=== PATIENT | male | born 1995 | race Caucasian/White ===

== ENCOUNTER 2016-08-03 16:06 | Emergency (ER) | payer OTHER ==
[2016-08-03 16:18] VITALS: BP 124/74; PULSE 88; RESP 20; TEMP 99.8
[2016-08-03] MEDS ORDERED: cefTRIAXone 250 MG VIAL IM STA (16:30)
[2016-08-03] MEDS ORDERED: AZITHROMYCIN 500 MG TAB PO STA (16:30)
--- NOTE | 2016-08-03 16:33 | ED ---
General Adult HPI - General Chief complaint: Urogenital Stated complaint: STD Screening Time Seen by Provider: 08/03/16 16:24 Source: patient, RN notes reviewed Mode of arrival: ambulatory Limitations: no limitations - History of Present Illness Initial comments: 21-year-old male presents emergency Department chief complaint of burning stinging with urination as well as urethral discharge. Patient states his girlfriend was diagnosed with chlamydia. Patient states that he is also having similar like symptoms. Patient states he is concerned about STD. Patient states is not currently having any other symptoms. Patient denies any history of STD in the past. Patient denies any recent fever, chills, shortness of breath , chest pain, back pain, abdominal pain, nausea vomiting, numbness or tingling, constipation or diarrhea, headaches or visual changes, or any other current symptoms. - Related Data Home Medications Medication Instructions Recorded Confirmed Ibuprofen [Motrin] 200 - 400 mg PO Q6HR PRN 08/03/16 08/03/16 Previous Rx's Medication Instructions Recorded Doxycycline [Vibramycin] 100 mg PO Q12HR #56 capsule 08/03/16 Allergies Allergy/AdvReac Type Severity Reaction Status Date / Time No Known Allergies Allergy Verified 08/03/16 16:39 Review of Systems ROS Statement: Those systems with pertinent positive or pertinent negative responses have been documented in the HPI. ROS Other: All systems not noted in ROS Statement are negative. Past Medical History Past Medical History: No Reported History History of Any Multi-Drug Resistant Organisms: None Reported Past Surgical History: No Surgical Hx Reported Past Psychological History: No Psychological Hx Reported Smoking Status: Current some day smoker Past Alcohol Use History: None Reported Past Drug Use History: None Reported General Exam - General Exam Comments Initial Comments: General: The patient is awake and alert, in no distress, and does not appear acutely ill. Eye: Pupils are equal, round and reactive to light. Ears, nose, mouth and throat: There are moist mucous membranes. Neck: The neck is supple, there is no tenderness. Cardiovascular: There is a regular rate and rhythm. No murmur, rub or gallop is appreciated. Respiratory: Lungs are clear to auscultation, respirations are non-labored, breath sounds are equal. No wheezes, stridor, rales, or rhonchi. Gastrointestinal: Soft, non-distended, non-tender abdomen without masses or organomegaly noted. There is no rebound or guarding present. No CVA tenderness. Bowel sounds are unremarkable. Musculoskeletal: Normal ROM, no tenderness, There is no pedal edema. There is no calf tenderness or swelling. Sensation intact. Pulses equal bilaterally 2+. Neurological: CN II-XII intact, There are no obvious motor or sensory deficits. Coordination appears grossly intact. Speech is normal. Skin: Skin is warm and dry and no rashes or lesions are noted. Psychiatric: Cooperative, appropriate mood & affect, normal judgment. Limitations: no limitations Course Vital Signs 08/03/16 16:16 Temperature 99.8 F H Pulse Rate 88 Respiratory 20 Rate Blood Pressure 124/74 O2 Sat by Pulse 99 Oximetry Medical Decision Making - Medical Decision Making 21-year-old male presents with chief complaint of dysuria. This time there is suspicion for chlamydia due to the fact that the girlfriend had been diagnosed. At this time we will start the patient on medication for this. We discussed follow-up on results we did discuss her temporalis all patient's questions very state Herb is significant plan. He will be discharged. - Lab Data Lab Results 08/03/16 Range/Units 16:22 Urine Color Yellow Urine Appearance Clear (Clear) Urine pH 5.5 (5.0-8.0) Ur Specific [place] 1.025 (1.001-1.035) Urine Protein Negative (Negative) Urine Glucose (UA) Negative (Negative) Urine Ketones Negative (Negative) Urine Blood Negative (Negative) Urine Nitrite Negative (Negative) Urine Bilirubin Negative (Negative) Urine Urobilinogen <2.0 (<2.0) mg/dL Ur Leukocyte Esterase Trace H (Negative) Urine RBC 1 (0-5) /hpf Urine WBC 9 H (0-5) /hpf Amorphous Sediment Rare H (None) /hpf Urine Mucus Rare H (None) /hpf Disposition Clinical Impression: Concern about STD in male without diagnosis Disposition: HOME SELF-CARE Condition: Stable Instructions: Sexually Transmitted Diseases (ED) Additional Instructions: Please use medication as discussed. Please follow up with family doctor if symptoms have not improved over the next two days. Please return to the emergency room if your symptoms increase or worsen or for any other concerns. Prescriptions: Doxycycline [Vibramycin] 100 mg PO Q12HR #56 capsule Referrals: Manuel Grimes MD [Primary Care Provider] - 1-2 days Time of Disposition: 16:47
[2016-08-03 16:43] LABS: Amorphous Sediment,Urine Rare /hpf; Appearance,Urine Clear (Clear); Bilirubin,Urine Negative (Negative); Glucose,Urine (UA) Negative (Negative); Ketones,Urine Negative (Negative); Leukocyte Esterase,Urine Trace (Negative); Mucus,Urine Rare /hpf; Nitrite,Urine Negative (Negative); PH, Urine 5.5 (5.0-8.0); Particle Count 1212; Protein,Urine Negative (Negative); RBC,Urine 1 /hpf (0-5); Specific Gravity,Urine 1.025 (1.001-1.035); UA Billing (MACRO vs. MICRO) MICRO; Urobilinogen,Urine <2.0 mg/dL (<2.0); WBC,Urine 9 /hpf (0-5)
== END 2016-08-03 17:09 | disposition home or self-care (01) ==
LOC: EC 16:06
DX: Z20.2 Contact with and (suspected) exposure to infections with a predominantly sexual mode of transmission (principal); R39.198 Other difficulties with micturition; F17.200 Nicotine dependence, unspecified, uncomplicated
CPT/HCPCS: 99283; 96372; 81001; 87491; 87591; 87086; J0696

== ENCOUNTER 2017-09-12 11:56 | Emergency (ER) | payer OTHER ==
[2017-09-12 12:03] VITALS: BP 144/75; PULSE 107; RESP 18; TEMP 98.7
--- NOTE | 2017-09-12 12:16 | ED ---
Skin/Abscess/FB HPI - General Chief complaint: Skin/Abscess/Foreign Body Stated complaint: Rash on hand/arm Time Seen by Provider: 09/12/17 12:06 Source: patient, RN notes reviewed Mode of arrival: ambulatory - History of Present Illness Initial comments: 22-year-old male presents emergency Department with chief complaint of a rash. Patient states that he got into poison mary and states that his been using done to soaps and alcohol this is not clearing up. Patient denies difficulty breathing or swallowing. He states his skin is dried out and very irritated this point. - Related Data Previous Rx's Medication Instructions Recorded predniSONE 10 mg PO DIRECTED #30 tab 09/12/17 Allergies Allergy/AdvReac Type Severity Reaction Status Date / Time No Known Allergies Allergy Verified 09/12/17 12:03 Review of Systems ROS Statement: Those systems with pertinent positive or pertinent negative responses have been documented in the HPI. ROS Other: All systems not noted in ROS Statement are negative. Past Medical History Past Medical History: No Reported History History of Any Multi-Drug Resistant Organisms: None Reported Past Surgical History: No Surgical Hx Reported Past Psychological History: No Psychological Hx Reported Smoking Status: Current some day smoker Past Alcohol Use History: Occasional Past Drug Use History: None Reported General Exam General appearance: alert, in no apparent distress Head exam: Present: atraumatic, normocephalic, normal inspection Neck exam: Present: normal inspection. Absent: tenderness, meningismus, lymphadenopathy Respiratory exam: Present: normal lung sounds bilaterally. Absent: respiratory distress, wheezes, rales, rhonchi, stridor Cardiovascular Exam: Present: regular rate, normal rhythm, normal heart sounds. Absent: systolic murmur, diastolic murmur, rubs, gallop, clicks Skin exam: Present: warm, dry, intact, normal color, rash (Erythematous macular to vesicular rash on the right arm) Course Vital Signs 09/12/17 11:58 Temperature 98.7 F Pulse Rate 107 H Respiratory 18 Rate Blood Pressure 144/75 O2 Sat by Pulse 98 Oximetry Medical Decision Making - Medical Decision Making 22-year-old male presented for rash. Patient has contact dermatitis secondary to poison mary. Patient was given steroid taper he is advised to use topical calamine, Caladryl or Benadryl cream. He is his advised not to continue to grab the skin and cause irritation. Disposition Clinical Impression: Poison mary dermatitis Disposition: HOME SELF-CARE Condition: Stable Instructions: Poison Mary (ED) Additional Instructions: Please return to the Emergency Department if symptoms worsen or any other concerns. Prescriptions: predniSONE 10 mg PO DIRECTED #30 tab Is patient prescribed a controlled substance at d/c from ED?: No Referrals: Shruthi Somers MD [Primary Care Provider] - 1-2 days Time of Disposition: 12:16
== END 2017-09-12 12:24 | disposition home or self-care (01) ==
LOC: EC 11:56
DX: L23.7 Allergic contact dermatitis due to plants, except food (principal); F17.200 Nicotine dependence, unspecified, uncomplicated
CPT/HCPCS: 99282

== ENCOUNTER 2020-05-20 13:54 | Emergency (ER) | payer OTHER ==
[2020-05-20 16:22] VITALS: BP 160/95; PULSE 104; RESP 20; TEMP 99
--- NOTE | 2020-05-20 16:23 | ED ---
General Adult HPI - General Stated complaint: Lft leg pain - History of Present Illness Initial comments: Patient is seen as a medical screening in triage. 25 -year-old presents to the chief complaint of left leg x 1 day. Patient states he was working, unsure what happened. States he started playing video games and back of his knee felt tight. States it throbs while he is sitting or when he does walk is when it really starts to hurt. Patient denies any redness or swelling of the left leg. States pain is a 7/10 with walking. No history of blood clots. No shortness of breath or chest pain. I did see patient in room. HPI as noted above. - Related Data Home Medications Medication Instructions Recorded Confirmed No Known Home Medications 05/20/20 05/20/20 Allergies Allergy/AdvReac Type Severity Reaction Status Date / Time No Known Allergies Allergy Verified 05/20/20 16:22 Review of Systems ROS Statement: Those systems with pertinent positive or pertinent negative responses have been documented in the HPI. ROS Other: All systems not noted in ROS Statement are negative. Past Medical History Past Medical History: No Reported History History of Any Multi-Drug Resistant Organisms: None Reported Past Surgical History: No Surgical Hx Reported Past Psychological History: No Psychological Hx Reported Past Alcohol Use History: Occasional Past Drug Use History: None Reported General Exam General appearance: alert, in no apparent distress Head exam: Present: atraumatic, normocephalic, normal inspection Eye exam: Present: normal appearance, PERRL, EOMI. Absent: scleral icterus, conjunctival injection, periorbital swelling ENT exam: Present: normal exam, mucous membranes moist Neck exam: Present: normal inspection. Absent: tenderness, meningismus, lymphadenopathy Respiratory exam: Present: normal lung sounds bilaterally. Absent: respiratory distress, wheezes, rales, rhonchi, stridor Cardiovascular Exam: Present: regular rate, normal heart sounds GI/Abdominal exam: Present: soft, normal bowel sounds. Absent: distended, tenderness, guarding, rebound, rigid Extremities exam: Present: normal inspection, full ROM (Full range of motion of the left leg.), normal capillary refill (Clear refill less than 2 seconds, DP pulse 2+ left lower extremity.). Absent: tenderness (No tenderness in the calf or posterior knee of the left leg.), joint swelling (No edema of the left lower extremity.) Course Vital Signs 05/20/20 16:20 Temperature 99.0 F Pulse Rate 104 H Respiratory 20 Rate Blood Pressure 160/95 O2 Sat by Pulse 100 Oximetry Medical Decision Making - Medical Decision Making Patient complains of pain behind the left knee. HPI and physical exam is documented. Neurovascular status intact. Vitals stable. Ultrasound was obtained. No evidence of DVT. X-ray of the knee showed a normal three-view exam. At this time patient will be discharged home, recommend Rice therapy and Motrin and Tylenol for pain. He was given orthopedic follow-up. He is requesting restrictions for work. He will return here for any worsening symptoms. Disposition Clinical Impression: Leg pain Disposition: HOME SELF-CARE Condition: Good Instructions (If sedation given, give patient instructions): Knee Pain (ED) Additional Instructions: Please take Motrin and Tylenol for pain. Do gentle stretching. Please follow- up with primary care in 1-2 days. Return to the emergency room for any worsening symptoms. Is patient prescribed a controlled substance at d/c from ED?: No Referrals: Shruthi Somers MD [Primary Care Provider] - 1-2 days Bal López DO [Doctor of Osteopathic Medicine] - 1-2 days Time of Disposition: 17:28
--- NOTE | 2020-05-20 16:43 | XR ---
EXAMINATION TYPE: XR knee complete LT DATE OF EXAM: 05/20/2020 COMPARISON: None HISTORY: Pain and tightness spine left knee TECHNIQUE: 3 view left knee FINDINGS: No acute fractures or dislocations are evident. Soft tissues are normal. No joint effusion is evident. Follow-up studies can be performed 7-10 days from acute trauma for continued pain. IMPRESSION: 1. Normal three-view left knee
--- NOTE | 2020-05-20 17:24 | US ---
EXAMINATION TYPE: US venous doppler duplex LE LT DATE OF EXAM: 05/20/2020 5:09 PM COMPARISON: NONE CLINICAL HISTORY: pain. Left popiteal pain since last night. No injury. Went from sitting to standing and felt pain in medial popiteal. No h/o dvt SIDE PERFORMED: Left TECHNIQUE: The lower extremity deep venous system is examined utilizing real time linear array sonog shila with graded compression, doppler sonography and color-flow sonography. VESSELS IMAGED: Common Femoral Vein Deep Femoral Vein Greater Saphenous Vein * Femoral Vein Popliteal Vein Small Saphenous Vein * Proximal Calf Veins (* superficial vessels) Left Leg: Negative for DVT IMPRESSION: No evidence of deep vein thrombosis in the left leg.
== END 2020-05-20 17:53 | disposition home or self-care (01) ==
LOC: EC 13:54
DX: M79.605 Pain in left leg (principal)
CPT/HCPCS: 99284

== ENCOUNTER → 2022-05-21 | Outpatient (CLI) | payer OTHER ==
--- NOTE | 2022-05-21 12:39 | XR ---
EXAMINATION TYPE: XR hand complete RT DATE OF EXAM: 05/21/2022 COMPARISON: NONE HISTORY: Pain TECHNIQUE: Three views are submitted. FINDINGS: The osseous structures are intact. The joint spaces are preserved and there is no acute fracture or dislocation. IMPRESSION: 1. No definite acute fracture or dislocation if symptoms persist, follow-up study in 7 to 10 days wo uld be suggested
== END | disposition home or self-care (01) ==
LOC: RADXRMAIN 12:17
PROVIDERS: ATTEND Emergency Medicine
DX: S67.190A Crushing injury of right index finger, initial encounter (principal); X58.XXXA Exposure to other specified factors, initial encounter